=== PATIENT | female | born 1950 ===

== ENCOUNTER 2021-08-12 06:50 | Day surgery (SDC) | payer OTHER ==
[~2021-08-12 06:50] MED LIST: GABAPENTIN300 M2 PO; HUMALOG100 UNIT/2; LANTUS SOL100 UNIT/1; LIPITOR20 MG PO; LOTREL 5-20 MG1 CAP PO; METFORMIN HCL1000 M2 PO
== END 2021-08-12 16:40 | disposition home or self-care (01) ==
LOC: CIR.AMB 06:50
PROVIDERS: ATTEND Surgery
DX: D05.12 Intraductal carcinoma in situ of left breast (principal)